=== PATIENT | male | born 1975 | race Caucasian/White ===

== ENCOUNTER 2024-03-04 06:19 | Day surgery (SDC) | payer OTHER, SELFPAY | END 2024-03-04 14:22 | disposition home or self-care (01) | LOC: GI 06:19 | PROVIDERS: ATTENDING PHYSICIAN Student in an Organized Health Care Education/Training Program | DX: Z12.11 Encounter for screening for malignant neoplasm of colon (principal); K63.5 Polyp of colon | CPT/HCPCS: 45385; 88305 ==